=== PATIENT | male | born 1975 | race Caucasian/White ===

== ENCOUNTER 2016-06-01 13:21 | Inpatient (IN) | payer OTHER ==
[2016-06-01 13:45] VITALS: BMI 24.1
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
[2016-06-01] MEDS ORDERED: ACETAMINOPHEN 325 MG TABLET (FP) PO PRN (17:31)
[2016-06-01] MEDS ORDERED: MAG HYDROX/AL HYDROX/SIMETH 30 ML UNIT-DOSE CUP PO PRN (17:31)
[2016-06-01] MEDS ORDERED: chlordiazePOXIDE HCL 25 MG CAPSULE PO ONE (17:31)
[2016-06-01] MEDS ORDERED: MENTHOL/PHENOL 1 EACH UD MM PRN (17:31)
[2016-06-01] MEDS ORDERED: MAGNESIUM HYDROX 2400MG/30ML ORAL SUSPENSION 30 ML CUP PO PRN (17:31)
[2016-06-01] MEDS ORDERED: LOPERAMIDE HCL 2 MG CAPSULE PO PRN (17:31)
[2016-06-01] MEDS ORDERED: MAGNESIUM CITRATE 300 ML BOTTLE PO PRN (17:31)
[2016-06-01] MEDS ORDERED: guaiFENesin/D-METHORPHAN HB 10 ML UNIT-DOSE CUPS PO PRN (17:31)
[2016-06-01] MEDS ORDERED: IBUPROFEN 400 MG TABLET (FP) PO PRN (17:31)
[2016-06-01] MEDS ORDERED: P-EPHED 60MG/TRIPROLIDI 2.5MG TABLET PO PRN (17:31)
[2016-06-01] MEDS: THIAMINE HCL 100 MG TABLET (FP) PO SCH (22:13)
[2016-06-01] MEDS: diphenhydrAMINE HCL 50 MG CAPSULE PO PRN (22:13)
[2016-06-01] MEDS: chlordiazePOXIDE HCL 25 MG CAPSULE PO SCH (22:13)
[2016-06-02] MEDS ORDERED: cloNIDine HCL 0.1 MG TABLET PO ONE (00:36)
[2016-06-02] MEDS: chlordiazePOXIDE HCL 25 MG CAPSULE PO PRN ×3 (00:51→22:45)
[2016-06-02] MEDS: chlordiazePOXIDE HCL 25 MG CAPSULE PO SCH ×4 (05:17→22:14)
[2016-06-02 10:07] LABS: MCH 32.3 pg (25.7-33.7); MCHC 32.7 g/dl (32.0-35.9); MEAN CELL VOLUME 98.7 fl (80-96); MEAN PLT VOLUME 11.8 fl (7.5-11.1); RDW 12.7 % (11.9-15.9)
[2016-06-02] MEDS: PRENATAL VITAMINS W/ FOLIC ACID TABLET (FP) PO SCH (10:11)
--- NOTE | 2016-06-02 10:21 | PN ---
S CIWA - CIWA Score Nausea/Vomitin Muscle Tremors: 3 Anxiety: 3 Agitation: 3 Paroxysmal Sweats: 3 Orientation: 0-Oriented Tacttile Disturbances: 1-Very Mild Itch/Numbness Auditory Disturbances: 0-None Visual Disturbances: 0-None Headache: 0-None Present CIWA-Ar Total Score: 16 BHS Progress Note (SOAP) Subjective: interrupted sleep, sweats, nausea Objective: 06/02/16 10:17 Vital Signs Temperature 99.1 F 06/02/16 09:49 Pulse Rate 116 H 06/02/16 09:49 Respiratory Rate 18 06/02/16 09:49 Blood Pressure 135/92 06/02/16 09:49 O2 Sat by Pulse Oximetry (%) Laboratory Tests 06/02/16 08:00 WBC 3.0 L RBC 4.16 Hgb 13.4 Hct 41.0 MCV 98.7 H MCHC 32.7 RDW 12.7 MPV 11.8 H D pending labs pt alert ox3 , tremors 06/02/16 10:21 Assessment: 06/02/16 10:19 withdrawal sx;s 06/02/16 10:21 Plan: cont detox increase fluids motrin prn librium prn
[2016-06-02 10:43] LABS: ALBUMIN 3.5 g/dl (3.4-5.0); ALK PHOS 103 U/L (45-117); ANION GAP 12 (8-16); BILIRUBIN,TOTAL 0.6 mg/dL (0.2-1.0); CO2 28 mmol/L (21-32); COCKROFT - GAULT 125.21; CREATININE 0.8 mg/dL (0.7-1.3); GLUCOSE,RANDOM 99 mg/dL (74-106); SGOT/AST 101 U/L (15-37); SGPT/ALT 60 U/L (12-78); TOT PROT 7.5 g/dl (6.4-8.2)
--- NOTE | 2016-06-02 11:29 | EKG ---
Test Reason : Blood Pressure : / mmHG Vent. Rate : 096 BPM Atrial Rate : 096 BPM P-R Int : 148 ms QRS Dur : 082 ms QT Int : 346 ms P-R-T Axes : 047 011 019 degrees QTc Int : 437 ms NORMAL SINUS RHYTHM NORMAL ECG NO PREVIOUS ECGS AVAILABLE Confirmed by FRANCHESKA BALDERAS MD ([id number]) on 06/02/2016 11:29:30 AM Referred By: Confirmed By:FRANCHESKA BALDERAS MD
[2016-06-02 13:20] LABS: PLATELET COUNT 95 K/MM3 (134-434)
[2016-06-02] MEDS: hydrOXYzine PAMOATE 50 MG CAPSULE (FP) PO PRN (15:13)
[2016-06-02 18:18] LABS: URINE APPEARANCE CLOUDY; URINE BILIRUBIN NEGATIVE (NEGATIVE); URINE COLOR YELLOW; URINE GLUCOSE (UA) NEGATIVE (NEGATIVE); URINE KETONE NEGATIVE (NEGATIVE); URINE NITRITE NEGATIVE (NEGATIVE); URINE PROTEIN NEGATIVE (NEGATIVE); URINE UROBILINOGEN NEGATIVE E.U./dl (0.2-1.0)
[2016-06-02 18:35] LABS: URINE BLOOD 1+ (NEGATIVE); URINE LEUK ESTERASE 1+ (NEGATIVE)
[2016-06-02 19:23] LABS: URINE RBC 1 /hpf (0-3); URINE WBC 2 /hpf (3-5)
[2016-06-02] MEDS: THIAMINE HCL 100 MG TABLET (FP) PO SCH (21:53)
[2016-06-03] MEDS: chlordiazePOXIDE HCL 25 MG CAPSULE PO SCH ×3 (06:26→18:01)
[2016-06-03] MEDS: PRENATAL VITAMINS W/ FOLIC ACID TABLET (FP) PO SCH (10:17)
--- NOTE | 2016-06-03 10:24 | PN ---
S CIWA - CIWA Score Nausea/Vomitin Muscle Tremors: 3 Anxiety: 3 Agitation: 2 Paroxysmal Sweats: 3 Orientation: 0-Oriented Tacttile Disturbances: 1-Very Mild Itch/Numbness Auditory Disturbances: 0-None Visual Disturbances: 0-None Headache: 0-None Present CIWA-Ar Total Score: 14 S Progress Note (SOAP) Subjective: interrupted sleep, sweats, shakes,scar rt eyebrow Objective: 06/03/16 10:20 Vital Signs Temperature 98.2 F 06/03/16 09:51 Pulse Rate 113 H 06/03/16 09:51 Respiratory Rate 18 06/03/16 09:51 Blood Pressure 131/95 06/03/16 09:51 O2 Sat by Pulse Oximetry (%) Laboratory Tests 06/02/16 06/02/16 06/02/16 08:00 08:00 08:00 WBC 3.0 L RBC 4.16 Hgb 13.4 Hct 41.0 MCV 98.7 H MCHC 32.7 RDW 12.7 Plt Count 95 L D MPV 11.8 H D Platelet Comment No clotting detected Sodium 139 Potassium 3.9 Chloride 99 Carbon Dioxide 28 Anion Gap 12 BUN 7 Creatinine 0.8 Creat Clearance w eGFR > 60 Random Glucose 99 D Calcium 9.0 Total Bilirubin 0.6 D AST 101 H ALT 60 D Alkaline Phosphatase 103 Total Protein 7.5 Albumin 3.5 Urine Color Urine Appearance Urine pH Ur Specific [place] Urine Protein Urine Glucose (UA) Urine Ketones Urine Blood Urine Nitrite Urine Bilirubin Urine Urobilinogen Ur Leukocyte Esterase Urine RBC Urine WBC Ur Epithelial Cells RPR Titer Nonreactive 06/02/16 13:00 WBC RBC Hgb Hct MCV MCHC RDW Plt Count MPV Platelet Comment Sodium Potassium Chloride Carbon Dioxide Anion Gap BUN Creatinine Creat Clearance w eGFR Random Glucose Calcium Total Bilirubin AST ALT Alkaline Phosphatase Total Protein Albumin Urine Color Yellow Urine Appearance Cloudy Urine pH 7.0 D Ur Specific [place] 1.008 Urine Protein Negative Urine Glucose (UA) Negative Urine Ketones Negative Urine Blood 1+ H Urine Nitrite Negative Urine Bilirubin Negative Urine Urobilinogen Negative Ur Leukocyte Esterase 1+ H Urine RBC 1 Urine WBC 2 Ur Epithelial Cells Moderate RPR Titer pt aox3 in nad mild tremor healing scar od eyebrow 06/03/16 10:23 06/03/16 10:24 Assessment: 04/11/17 10:21 withdrawal sx's od eyebrow scar healing 06/03/16 10:23 06/03/16 10:24 Plan: cont detox increase fluids vit e librium prn
[2016-06-03] MEDS: chlordiazePOXIDE HCL 25 MG CAPSULE PO PRN ×2 (14:00→20:11)
[2016-06-03] MEDS: chlordiazePOXIDE 5 MG CAPSULE PO SCH (22:40)
[2016-06-03] MEDS: diphenhydrAMINE HCL 50 MG CAPSULE PO PRN (22:40)
[2016-06-03] MEDS: THIAMINE HCL 100 MG TABLET (FP) PO SCH (22:40)
[2016-06-04] MEDS: chlordiazePOXIDE 5 MG CAPSULE PO SCH ×3 (05:46→17:58)
[2016-06-04] MEDS: PRENATAL VITAMINS W/ FOLIC ACID TABLET (FP) PO SCH (10:21)
--- NOTE | 2016-06-04 13:29 | PN ---
BHS Progress Note (SOAP) Subjective: feeling better, + shakes Objective: 06/04/16 13:28 Vital Signs Temperature 97.3 F L 06/04/16 10:08 Pulse Rate 106 H 06/04/16 10:08 Respiratory Rate 20 06/04/16 10:08 Blood Pressure 129/84 06/04/16 10:08 O2 Sat by Pulse Oximetry (%) Laboratory Tests 06/02/16 06/02/16 06/02/16 08:00 08:00 08:00 WBC 3.0 L RBC 4.16 Hgb 13.4 Hct 41.0 MCV 98.7 H MCHC 32.7 RDW 12.7 Plt Count 95 L D MPV 11.8 H D Platelet Comment No clotting detected Sodium 139 Potassium 3.9 Chloride 99 Carbon Dioxide 28 Anion Gap 12 BUN 7 Creatinine 0.8 Creat Clearance w eGFR > 60 Random Glucose 99 D Calcium 9.0 Total Bilirubin 0.6 D AST 101 H ALT 60 D Alkaline Phosphatase 103 Total Protein 7.5 Albumin 3.5 Urine Color Urine Appearance Urine pH Ur Specific [place] Urine Protein Urine Glucose (UA) Urine Ketones Urine Blood Urine Nitrite Urine Bilirubin Urine Urobilinogen Ur Leukocyte Esterase Urine RBC Urine WBC Ur Epithelial Cells RPR Titer Nonreactive 06/02/16 13:00 WBC RBC Hgb Hct MCV MCHC RDW Plt Count MPV Platelet Comment Sodium Potassium Chloride Carbon Dioxide Anion Gap BUN Creatinine Creat Clearance w eGFR Random Glucose Calcium Total Bilirubin AST ALT Alkaline Phosphatase Total Protein Albumin Urine Color Yellow Urine Appearance Cloudy Urine pH 7.0 D Ur Specific [place] 1.008 Urine Protein Negative Urine Glucose (UA) Negative Urine Ketones Negative Urine Blood 1+ H Urine Nitrite Negative Urine Bilirubin Negative Urine Urobilinogen Negative Ur Leukocyte Esterase 1+ H Urine RBC 1 Urine WBC 2 Ur Epithelial Cells Moderate RPR Titer pt aox3 in nad ambulating+ shakes mild Assessment: 06/04/16 13:28 withdrawal sx's Plan: cont. detox increase fluids d/c in am
[2016-06-04] MEDS: chlordiazePOXIDE HCL 25 MG CAPSULE PO PRN (14:02)
[2016-06-04] MEDS: chlordiazePOXIDE HCL 10 MG CAPSULE PO SCH (22:59)
[2016-06-04] MEDS: THIAMINE HCL 100 MG TABLET (FP) PO SCH (22:59)
[2016-06-04] MEDS: diphenhydrAMINE HCL 50 MG CAPSULE PO PRN (23:51)
[2016-06-05] MEDS: chlordiazePOXIDE HCL 10 MG CAPSULE PO SCH (06:11)
--- NOTE | 2016-06-05 08:33 | DS ---
[facility] Detox Discharge Summary Admission Date: 06/01/16 Discharge Date: 06/05/16 - History Present History: Alcohol Dependence - Physical Exam Results Vital Signs: Vital Signs Temperature 97.5 F L 06/05/16 06:53 Pulse Rate 88 06/05/16 06:53 Respiratory Rate 18 06/05/16 06:53 Blood Pressure 134/76 06/05/16 06:53 O2 Sat by Pulse Oximetry (%) - Treatment Hospital Course: Detox Protocol Followed, Detoxed Safely, Responded well, Discharged Condition Good - Medication Discharge Medications: Ambulatory Orders NK [No Known Home Medication] 02/01/14 - Diagnosis (1) Alcohol dependence with uncomplicated withdrawal Current Visit: Yes Status: Chronic (2) Hypercholesteremia Current Visit: Yes Status: Chronic - AMA Did Patient Leave Against Medical Advice: No
[2016-06-05] MEDS: PRENATAL VITAMINS W/ FOLIC ACID TABLET (FP) PO SCH (09:45)
[2016-06-05] MEDS: hydrOXYzine PAMOATE 50 MG CAPSULE (FP) PO PRN (09:46)
[2016-06-05 10:01] VITALS: BP 123/85; PULSE 103; TEMP 97.2
== END 2016-06-05 10:02 | disposition home or self-care (01) | DRG 775 ==
LOC: YASAS 13:21 → Y6N 17:18
PROVIDERS: ADMIT Internal Medicine; ATTEND Internal Medicine Addiction Medicine
PROC: HZ2ZZZZ Detoxification Services for Substance Abuse Treatment (ICD-10-PCS; principal; 2016-06-05)
DX: F10.230 Alcohol dependence with withdrawal, uncomplicated (principal); G40.509 Epileptic seizures related to external causes, not intractable, without status epilepticus; E78.00 Pure hypercholesterolemia, unspecified
CPT/HCPCS: 36415; 80053; 81003; 81015; 85027; 86593; 93005; 93010

== ENCOUNTER 2018-07-15 21:43 | Emergency (ER) | payer OTHER ==
[2018-07-15 21:49] VITALS: BMI 268.5
--- NOTE | 2018-07-15 22:15 | PDOC ---
History of Present Illness - General Chief Complaint: Alcohol intoxication Stated Complaint: INTOX Time Seen by Provider: 07/15/18 22:15 - History of Present Illness Initial Comments: 42yo M with PMH of ETOH abuse, alcohol withdrawal seizures, and HTN presenting with intoxication. Patient was sent to this ED because there were no beds available at [facility] detox [facility]. He does not have acute complaints, but is motivated to enter detox. Patient admits to drinking 40 eighteen ounce budweiser beers. He has had heavy drinking for the past 20 years or so. He last had an alcohol withdrawal seizure two weeks ago. 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 No suicidal or homicidal ideation. No fevers, chills, chest pain, or shortness of breath. Past History - Past Medical History Allergies/Adverse Reactions: Allergies Allergy/AdvReac Type Severity Reaction Status Date / Time No Known Allergies Allergy Verified 07/15/18 21:46 Home Medications: Ambulatory Orders NK [No Known Home Medication] 02/01/14 Anemia: No Asthma: No Cancer: No Cardiac Disorders: No CVA: No COPD: No CHF: No Dementia: No Diabetes: No GI Disorders: No Disorders: No HTN: Yes Hypercholesterolemia: Yes Kidney Stones: No Liver Disease: No Seizures: No Thyroid Disease: No - Surgical History Abdominal Surgery: No Appendectomy: No Cardiac Surgery: No Cholecystectomy: No Lung Surgery: No Neurologic Surgery: No Orthopedic Surgery: No - Reproductive History Testicular Surgery: No - Suicide/Smoking/Psychosocial Hx Smoking History: Unknown if ever smoked Have you smoked in the past 12 months: No Information on smoking cessation initiated: No Hx Alcohol Use: Yes Drug/Substance Use Hx: No Substance Use Type: Alcohol Hx Substance Use Treatment: No Review of Systems - Review of Systems Comments:: Constitutional: no fever, no chills HEENT: no throat pain, no dysphagia Cardiovascular: no chest pain, no palpitations Respiratory: no cough, no shortness of breath Gastrointestinal: no abdominal pain, no nausea Genitourinary: no dysuria, no frequency Musculoskeletal: no myalgia, no arthralgia Skin: no rash, no itching Neurologic: no headache, no weakness *Physical Exam - Vital Signs Last Vital Signs Temp Pulse Resp BP Pulse Ox 98.6 F 90 18 134/80 98 07/15/18 21:47 07/15/18 21:47 07/15/18 21:47 07/15/18 21:47 07/15/18 21:47 - Physical Exam Comments: General: Awake, alert, and fully oriented, in no acute distress, fruity breath Head: No signs of trauma Eyes: EOMI, sclera anicteric ENT: Moist mucus membranes Neck: Normal ROM, supple Lungs: Lungs clear, Normal breath sounds Cardio: Regular rhythm, S1 and S2 present Abdomen: Soft, nontender. No guarding, no rebound, no masses Extremities: Normal range of motion, Distal pulses present SKIN: Warm, Dry, normal turgor Neurologic: Cranial nerves II through XII grossly intact. Slurred speech ED Treatment Course - LABORATORY CBC & Chemistry Diagram: 07/15/18 22:44 07/15/18 22:44 Medical Decision Making - Medical Decision Making 42yo M with PMH of ETOH abuse, alcohol withdrawal seizures, and HTN presenting with intoxication. Sent over by [facility] because they do not have beds available Banana bag given Basic labs sent CBC WBC 4.5 K/mm3 (4.0-10.0) 07/15/18 22:44 RBC 4.39 M/mm3 (4.00-5.60) 07/15/18 22:44 Hgb 13.5 GM/dL (11.7-16.9) 07/15/18 22:44 Hct 41.2 % (35.4-49) 07/15/18 22:44 MCV 93.9 fl (80-96) 07/15/18 22:44 MCH 30.7 pg (25.7-33.7) 07/15/18 22:44 MCHC 32.7 g/dl (32.0-35.9) 07/15/18 22:44 RDW 13.9 % (11.9-15.9) 07/15/18 22:44 Plt Count 139 K/MM3 (134-434) D 07/15/18 22:44 MPV 10.1 fl (7.5-11.1) D 07/15/18 22:44 Absolute Neuts (auto) 1.1 K/mm3 (1.5-8.0) L 07/15/18 22:44 Neutrophils % 24.9 % (42.8-82.8) L 07/15/18 22:44 Lymphocytes % 59.4 % (8-40) H 07/15/18 22:44 Monocytes % 9.0 % (3.8-10.2) 07/15/18 22:44 Eosinophils % 3.8 % (0-4.5) 07/15/18 22:44 Basophils % 2.9 % (0-2.0) H 07/15/18 22:44 Nucleated RBC % 0 % (0-0) 07/15/18 22:44 Platelet Estimate Decreased 07/15/18 22:44 Platelet Comment No clumping noted 07/15/18 22:44 No leukocytosis or anemia CMP Sodium 143 mmol/L (136-145) 07/15/18 22:44 Potassium 4.1 mmol/L (3.5-5.1) 07/15/18 22:44 Chloride 109 mmol/L (98-107) H 07/15/18 22:44 Carbon Dioxide 25 mmol/L (21-32) 07/15/18 22:44 Anion Gap 10 MMOL/L (8-16) 07/15/18 22:44 BUN 6 mg/dL (7-18) L 07/15/18 22:44 Creatinine 0.7 mg/dL (0.55-1.3) 07/15/18 22:44 Est GFR (CKD-EPI)AfAm 134.91 07/15/18 22:44 Est GFR (CKD-EPI)NonAf 116.40 07/15/18 22:44 Random Glucose 100 mg/dL (74-106) 07/15/18 22:44 Calcium 8.6 mg/dL (8.5-10.1) 07/15/18 22:44 Total Bilirubin 0.3 mg/dL (0.2-1) 07/15/18 22:44 AST 116 U/L (15-37) H 07/15/18 22:44 ALT 45 U/L (13-61) 07/15/18 22:44 Alkaline Phosphatase 103 U/L (45-117) 07/15/18 22:44 Total Protein 8.6 g/dl (6.4-8.2) H 07/15/18 22:44 Albumin 4.0 g/dl (3.4-5.0) 07/15/18 22:44 Elevated AST as expected given patient's heavy alcohol use Ambulating without difficulty No slurred speech Patient clinically sober for discharge May present to [facility] for detox 07/16/18 07:59 *DC/Admit/Observation/Transfer Diagnosis at time of Disposition: Alcohol use with intoxication - Discharge Dispostion Disposition: HOME Condition at time of disposition: Stable - Referrals - Patient Instructions Printed Discharge Instructions: DI for Alcohol Abuse Additional Instructions: Present to [facility] at 8am tomorrow [place] [address] Follow-up with you primary care physician in 5-7 days to discuss this ED visit and to further evaluate your symptoms. Your care is not complete until you do so. Call and make an appointment. Immediate medical attention is required if you have: a seizure or develop tremors or hallucinations and do not have access to alcohol, vomiting, chest pain, shortness of breath, abdominal pain, thoughts of self-harm, or an other new or concerning symptoms. If you think you are having an emergency, call for emergency medical services or present to the emergency department right away. - Post Discharge Activity
--- NOTE | 2018-07-15 22:36 | PDOC ---
Documentation entered by Maeve Brewer SCRIBE, acting as scribe for Sam Manzo MD. Sam Manzo MD: This documentation has been prepared by the sae, Maeve Brewer SCRIBE, under my direction and personally reviewed by me in its entirety. I confirm that the documentation accurately reflects all work, treatment, procedures, and medical decision making performed by me. Attending Attestation - Resident Resident Name: Radha Camargo - ED Attending Attestation I have performed the following: I have examined & evaluated the patient, The case was reviewed & discussed with the resident, I agree w/resident's findings & plan, Exceptions are as noted - HPI HPI: 07/15/18 22:44 The patient is a 42-year-old male with a past medical history significant for HTN and alcohol abuse presents to the emergency department from [facility] for evaluation. The patient reports he was evaluated at [facility] for alcohol detox prior to coming to the ER. The patient reports he had 40 bottles of 18 oz of Budweiser today. 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 Patient denies any other complain, denies HI, SI, trauma, or falls. The patient reports a prior history of alcohol withdrawal seizures. Denies fever , chills, chest pain, or shortness of breath. Allergies: NKDA - Physicial Exam PE: 07/16/18 07:47 Visibly intoxicated, NAD NCAT, PERRL, no icterus No tongue fasciculations RRR LCTAB Abd soft, nt, nd Ext, no swelling, deformities, no asterixis - Medical Decision Making 07/16/18 07:48 Patient is acutely intoxicated. He initially presented to [facility] requesting detox but they had no beds so he was transported to this ED Will evaluate for any acute medical issues and monitor until clinically sober Pt is still expressing desire for detox [facility] states that they now have 3 openings this morning Pt is clinically sober, will dc and escort to [facility]
[2018-07-15] MEDS ORDERED: FOLIC ACID INJECTION - 1 MG, THIAMINE HCL 100 MG, MULTIVIT INJECTION ADULT 10 ML in SOD... IVPB ONE (22:42)
[2018-07-15 22:53] LABS: BASO % 2.9 % (0-2.0); EOS % 3.8 % (0-4.5); HEMATOCRIT 41.2 % (35.4-49); HEMOGLOBIN 13.5 GM/dL (11.7-16.9); LYMPH % 59.4 % (8-40); MCH 30.7 pg (25.7-33.7); MCHC 32.7 g/dl (32.0-35.9); MEAN CELL VOLUME 93.9 fl (80-96); MEAN PLT VOLUME 10.1 fl (7.5-11.1); NEUT % 24.9 % (42.8-82.8); PLATELET COUNT 139 K/MM3 (134-434); RBC 4.39 M/mm3 (4.00-5.60); RDW 13.9 % (11.9-15.9); WHITE BLOOD COUNT 4.5 K/mm3 (4.0-10.0)
[2018-07-15 23:28] LABS: PLATELET ESTIMATE DECREASED
[2018-07-15 23:51] LABS: BILIRUBIN,TOTAL 0.3 mg/dL (0.2-1); CALCIUM 8.6 mg/dL (8.5-10.1); CREATININE 0.7 mg/dL (0.55-1.3); POTASSIUM 4.1 mmol/L (3.5-5.1); TOT PROT 8.6 g/dl (6.4-8.2)
[2018-07-16 03:27] VITALS: TEMP 98.7
[2018-07-16 08:10] VITALS: BP 118/70; PULSE 95
== END 2018-07-16 07:45 | disposition home or self-care (01) ==
LOC: JER 21:43
PROC: 3E033GC Introduction of Other Therapeutic Substance into Peripheral Vein, Percutaneous Approach (ICD-10-PCS; principal; 2018-07-15)
DX: F10.120 Alcohol abuse with intoxication, uncomplicated (principal); I10 Essential (primary) hypertension; G40.509 Epileptic seizures related to external causes, not intractable, without status epilepticus
CPT/HCPCS: 36415; 80053; 85025; 99282-25; J7030

== ENCOUNTER 2018-07-16 17:32 | Emergency (ER) | payer OTHER ==
[2018-07-16 18:01] VITALS: TEMP 98.1; BMI 25.9
[2018-07-16] MEDS ORDERED: SODIUM CHLORIDE 1,000 ML IV STA (19:41)
--- NOTE | 2018-07-16 19:50 | PDOC ---
History of Present Illness - General Chief Complaint: Seizure Stated Complaint: SEIZURE Time Seen by Provider: 07/16/18 18:50 History Source: Patient Exam Limitations: No Limitations - History of Present Illness Initial Comments: 07/16/18 19:42 Patient is a 42 year old male with history of alcohol use disorder, with withdrawal seizures, hypertension, presents from [facility] after witnessed seizure activity. Patient endorses that he was feeling weak, and lightheaded, however does not remember what happened. Per [facility] note, patient was noted to be shaking while upright, and was helped to the floor. Noted that he did not fall. Patient was given Ativan 1mg IV. Patient does not recall any trauma to his head, or any part of his body. He currently denies headache subjective fevers, chills, shortness of breath, chest pain, palpitations, abdominal pain, nausea, vomiting. Past History - Travel Traveled outside of the country in the last 30 days: No - Past Medical History Allergies/Adverse Reactions: Allergies Allergy/AdvReac Type Severity Reaction Status Date / Time No Known Allergies Allergy Verified 07/16/18 10:02 Home Medications: Ambulatory Orders NK [No Known Home Medication] 07/16/18 Anemia: No Asthma: No Cancer: No Cardiac Disorders: No CVA: No COPD: No CHF: No Dementia: No Diabetes: No GI Disorders: No Disorders: No HTN: No Hypercholesterolemia: Yes Kidney Stones: No Liver Disease: No Seizures: Yes Thyroid Disease: No - Surgical History Abdominal Surgery: No Appendectomy: No Cardiac Surgery: No Cholecystectomy: No Lung Surgery: No Neurologic Surgery: No Orthopedic Surgery: No - Reproductive History Testicular Surgery: No - Suicide/Smoking/Psychosocial Hx Smoking History: Never smoked Have you smoked in the past 12 months: No Information on smoking cessation initiated: No Hx Alcohol Use: Yes Drug/Substance Use Hx: No Substance Use Type: Alcohol Hx Substance Use Treatment: Yes Review of Systems - Review of Systems Able to Perform ROS?: Yes (As per HPI) *Physical Exam - Vital Signs Last Vital Signs Temp Pulse Resp BP Pulse Ox 98.1 F 125 H 18 127/67 100 07/16/18 17:57 07/16/18 17:57 07/16/18 17:57 07/16/18 17:57 07/16/18 17:57 - Physical Exam General Appearance: No: Apparent Distress HEENT: positive: EOMI, IWONA. negative: Photophobia, Scleral Icterus (R), Scleral Icterus (L), Pharyngeal Erythema, Tonsillar Exudate Neck: positive: Supple. negative: Lymphadenopathy (R), Lymphadenopathy (L) Respiratory/Chest: positive: Lungs Clear, Normal Breath Sounds. negative: Respiratory Distress, Labored Respiration, Crackles, Rales, Rhonchi, Stridor, Wheezing, Hyperresonant, Dullness Cardiovascular: positive: Regular Rhythm, S1, S2, Tachycardia. negative: Murmur Gastrointestinal/Abdominal: positive: Normal Bowel Sounds, Flat, Soft. 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 Noted that patient did not fall, and was helped onto the flood per [facility] note. Currently [facility] 7-9 Will obtain CBC, BMP EKG, troponin Patient tachycardic. Will hydrate with 1L normal saline IV bolus Ativan 2mg IV 07/16/18 23:20 EKG shows normal sinus rhythm at 93 BPM. No ischemic changes. Troponin 0.02 Hypokalemic to 3.4. Potassium repleted. Will discharge patient back to [facility]. Case discussed with [facility] admitting, and patient has bed available. All patient's questions, concerns answered, addressed. Patient in agreement with plan. *DC/Admit/Observation/Transfer Diagnosis at time of Disposition: Alcohol dependence, Alcohol withdrawal seizure - Discharge Dispostion Disposition: LONG-TERM FACILITY Condition at time of disposition: Stable Decision to Admit order: No - Referrals - Patient Instructions Additional Instructions: You were seen in the Emergency Department for alcohol withdrawal, and seizure. You were treated with medication for withdrawal, and seizure. Your blood work, and EKG were within normal limits, and you are being discharged back [facility]. Follow the medication, follow up, and discharge recommendations of the physicians at [facility]. Follow up with your primary care physician within one to two days after discharge. - Post Discharge Activity
[2018-07-16] MEDS ORDERED: LORazepam 2 MG/ML SDV VIAL ONE (20:08)
[2018-07-16 21:15] LABS: HEMATOCRIT 36.1 % (35.4-49); MCH 31.1 pg (25.7-33.7); MCHC 33.3 g/dl (32.0-35.9); MEAN CELL VOLUME 93.4 fl (80-96); MEAN PLT VOLUME 10.7 fl (7.5-11.1); RBC 3.87 M/mm3 (4.00-5.60); RDW 14.3 % (11.9-15.9); WHITE BLOOD COUNT 8.3 K/mm3 (4.0-10.0)
[2018-07-16 22:30] VITALS: BP 156/99; PULSE 98
[2018-07-16 22:34] LABS: ANION GAP 9 MMOL/L (8-16); BLOOD UREA NITROGEN 7 mg/dL (7-18); CALCIUM 8.6 mg/dL (8.5-10.1); CHLORIDE 105 mmol/L (98-107); CO2 26 mmol/L (21-32); CREATININE 0.7 mg/dL (0.55-1.3); GLUCOSE,RANDOM 105 mg/dL (74-106); POTASSIUM 3.4 mmol/L (3.5-5.1); SODIUM 140 mmol/L (136-145)
[2018-07-16] MEDS ORDERED: POTASSIUM CHLORIDE ORAL LIQUID 20 MEQ/15 ML PO ONE (22:38)
[2018-07-16 22:44] LABS: PLATELET COUNT 113 K/MM3 (134-434)
[2018-07-16] MEDS ORDERED: VALSARTAN 40 MG TABLET (FP) PO ONE (23:04)
[2018-07-16] MEDS ORDERED: ACETAMINOPHEN 1000 MG/100 ML VIAL (NON FORMULARY) IVPB ONE (23:07)
[2018-07-16] MEDS ORDERED: POTASSIUM CHLORIDE ORAL LIQUID 20 MEQ/15 ML ONE (23:12)
[2018-07-16] MEDS ORDERED: VALSARTAN 80 MG TABLET (UD) ONE (23:14)
[2018-07-16] MEDS ORDERED: ACETAMINOPHEN INJECTION 100 ML IVPB ONE (23:14)
--- NOTE | 2018-07-16 23:52 | PDOC ---
Documentation entered by Geovanny Noguera SCRIBE, acting as scribe for Blanquita Lyles MD. Blanquita Lyles MD: This documentation has been prepared by the jamese, Geovanny Noguera SCRIBE, under my direction and personally reviewed by me in its entirety. I confirm that the documentation accurately reflects all work, treatment, procedures, and medical decision making performed by me. Attending Attestation - Resident Resident Name: Nicolas Dave - ED Attending Attestation I have performed the following: I have examined & evaluated the patient, The case was reviewed & discussed with the resident, I agree w/resident's findings & plan - HPI HPI: 07/16/18 20:05 The patient is a 42 year old male with a significant past medical history of hypertension, ETOH abuse with alcohol with withdrawal seizures and hypercholesterolemia who presents to the emergency department via EMS from [facility] with a witnessed seizure today. The patient reports that he went to [facility] yesterday for alcohol detox s/p consuming 12 beers and about 2 pints of whiskey. The patient states that he was feeling lightheaded and weak prior to his seizure episode. As per nursing at [facility], the patient was noted to be convulsing and shaking by which they helped him down to the ground. It is noted that the patient subsequently received 1mg of ativan and was brought to the ED. The patient denies any other symptoms or complaints. - Physicial Exam PE: 07/16/18 23:18 GENERAL: Awake, alert, and fully oriented, in no acute distress HEAD: No signs of trauma EYES: PERRLA, EOMI, sclera anicteric, conjunctiva clear ENT: Auricles normal inspection, hearing grossly normal, nares patent, oropharynx clear without exudates. Moist mucosa NECK: Normal ROM, supple, no lymphadenopathy, JVD, or masses LUNGS: Breath sounds equal, clear to auscultation bilaterally. No wheezes, and no crackles HEART:(+)heart rate is high, not tachy. Regular rhythm, normal S1 and S2, no murmurs, rubs or gallops ABDOMEN: Soft, nontender, normoactive bowel sounds. No guarding, no rebound. No masses EXTREMITIES: Normal range of motion, no edema. No clubbing or cyanosis. No cords, erythema, or tenderness NEUROLOGICAL: Cranial nerves II through XII grossly intact. Normal speech, normal gait SKIN: (+)warm to touch. Dry, normal turgor, no rashes or lesions noted. - Medical Decision Making 07/17/18 03:05 Pt has normal exam and his BP was treated and he was hydrated and potassium was repleted. He was treated with ativan for alcohol withdrawal and he is feeling better. He will be sent back to [facility]
--- NOTE | 2018-07-17 15:29 | EKG ---
Test Reason : Blood Pressure : / mmHG Vent. Rate : 093 BPM Atrial Rate : 093 BPM P-R Int : 150 ms QRS Dur : 086 ms QT Int : 364 ms P-R-T Axes : 035 029 014 degrees QTc Int : 452 ms NORMAL SINUS RHYTHM NORMAL ECG WHEN COMPARED WITH ECG OF 01-JUN-2016 19:01, NO SIGNIFICANT CHANGE WAS FOUND Confirmed by MD Friedman Daniel ([id number]) on 07/17/2018 3:29:33 PM Referred By: Confirmed By:Aamir Friedman MD
== END 2018-07-17 03:20 | disposition other institution (70) ==
LOC: JER 17:32
PROC: 3E0337Z Introduction of Electrolytic and Water Balance Substance into Peripheral Vein, Percutaneous Approach (ICD-10-PCS; principal; 2018-07-16)
PROC: 3E033NZ Introduction of Analgesics, Hypnotics, Sedatives into Peripheral Vein, Percutaneous Approach (ICD-10-PCS; 2018-07-16)
PROC: 3E033NZ Introduction of Analgesics, Hypnotics, Sedatives into Peripheral Vein, Percutaneous Approach (ICD-10-PCS; 2018-07-16)
DX: G40.509 Epileptic seizures related to external causes, not intractable, without status epilepticus (principal); E87.6 Hypokalemia; I10 Essential (primary) hypertension
CPT/HCPCS: 36415; 80048; 84484; 85027; 86704; 86706; 86708; 86803; 87340; 93005; 93010; 99283-25; J0131; J7030

== ENCOUNTER 2018-07-26 22:46 | Inpatient (IN) | payer OTHER | END 2018-07-29 10:12 | disposition left against medical advice (07) | LOC: YASAS 22:46 → Y6N 23:52 ==

== ENCOUNTER 2018-10-04 12:52 | Inpatient (IN) | payer OTHER ==
[2018-10-04 15:18] VITALS: BMI 25.7
--- NOTE | 2018-10-04 16:47 | HP ---
CIWA Score Nausea/Vomitin Muscle Tremors: 2 Anxiety: 2 Agitation: 1-Slight > Activity Paroxysmal Sweats: 2 Orientation: 0-Oriented Tacttile Disturbances: 0-None Auditory Disturbances: 0-None Visual Disturbances: 0-None Headache: 3-Moderate CIWA-Ar Total Score: 13 - Admission Criteria [facility]ASAS Guidelines: Admission for Medically Managed Detox: Requires at least one of the followin. CIWA greater than 12 2. Seizures within the past 24 hours 3. Delirium tremens within the past 24 hours 4. Hallucinations within the past 24 hours 5. Acute intervention needed for co occurring medical disorder 6. Acute intervention needed for co occurring psychiatric disorder 7. Severe withdrawal that cannot be handled at a lower level of care (continued vomiting, continued diarrhea, abnormal vital signs) requiring intravenous medication and/or fluids 8. Admission ROS [facility] Chief Complaint: detox from ETOH Allergies/Adverse Reactions: Allergies Allergy/AdvReac Type Severity Reaction Status Date / Time No Known Allergies Allergy Verified 10/04/18 15:12 History of Present Illness: Mr. Tiffani Jones is a 42yo male with hx of alcohol use disorder, HTN, and HLD who presents for alcohol detox. He was unable to quantify amount of alcohol used recently, but his last visit in July showed more than 12 24oz beers daily. He left AMA last admission after 3 days. He reports hx of seizures (pt sent to ED in June) and blackouts. He reports nausea, abdominal pain, headache, and tremors. 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 He reports intermittent use of HTN meds and does not take meds for HLD. Pt also reports dry feet bilaterally x 5 years. He denies itching, loss of sensation, or pain. PMH: alcohol use disorder, HTN, HLD Surgical hx: skull fx repair Family hx: father-HTN meds: amlodipine NKDA - Ebola screening Have you traveled outside of the country in the last 21 days: No Have you had contact with anyone from an Ebola affected area: No - Review of Systems Constitutional: Chills, Diaphoresis EENT: reports: Tearing Respiratory: denies: Shortness of Breath, Wheezing Cardiac: denies: Chest Pain GI: reports: Nausea. denies: Vomiting : reports: No Symptoms Reported Musculoskeletal: denies: Back Pain Integumentary: reports: Dryness. denies: Erythema, Pruritus Neuro: reports: Headache Endocrine: reports: No Symptoms Reported Hematology: reports: No Symptoms Reported Psychiatric: reports: Judgement Intact, Mood/Affect Appropiate, Orientated x3 Patient History - Patient Medical History Hx Anemia: No Hx Asthma: No Hx Chronic Obstructive Pulmonary Disease (COPD): No Hx Cancer: No Hx Cardiac Disorders: No Hx Congestive Heart Failure: No Hx Hypertension: Yes Hx Hypercholesterolemia: Yes Hx Pacemaker: No HX Cerebrovascular Accident: No Hx Seizures: No Hx Dementia: No Hx Diabetes: No Hx Gastrointestinal Disorders: No Hx Liver Disease: No Hx Genitourinary Disorders: No Hx Sexually Transmitted Disorders: No Hx Renal Disease (ESRD): No Hx Thyroid Disease: No Hx Human Immunodeficiency Virus (HIV): No (last negative 06/11 ) Hx Hepatitis C: No Hx Depression: No Hx Suicide Attempt: No Hx Bipolar Disorder: No Hx Schizophrenia: No - Patient Surgical History Past Surgical History: No Hx Neurologic Surgery: No Hx Cataract Extraction: No Hx Cardiac Surgery: No Hx Lung Surgery: No Hx Breast Surgery: No Hx Breast Biopsy: No Hx Abdominal Surgery: No Hx Appendectomy: No Hx Cholecystectomy: No Hx Genitourinary Surgery: No Hx Section: No Hx Orthopedic Surgery: No Anesthesia Reaction: No - PPD History Date: 06/03/16 - Smoking Cessation Smoking history: Never smoked Have you smoked in the past 12 months: No Hx Chewing Tobacco Use: No - Substances abused Alcohol Substance route: Oral Frequency: Daily Amount used: 14 24/oz cans of beer Age of first use: 32 Date of last use: 10/04/18 Family Disease History - Family Disease History Family Disease History: Heart Disease: Father (alcohol), Other: Father Admission Physical Exam S - Vital Signs Vital Signs: Vital Signs - 24 hr 10/04/18 10/04/18 15:11 16:31 Temperature 97.2 F L 97.2 F L Pulse Rate 85 85 Respiratory 16 16 Rate Blood Pressure 120/77 120/77 - Physical General Appearance: Yes: No Apparent Distress, Disheveled HEENTM: Yes: Hearing grossly Normal, Normocephalic, IWONA Respiratory: Yes: Lungs Clear, No Respiratory Distress Neck: Yes: Within Normal Limits Cardiology: Yes: Regular Rhythm, Regular Rate. 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316 Urine Drug Screen - Test Device Lot number: [id number] Expiration date: 06/22/20 - Control Is test valid?: Yes - Results Drug screen NEGATIVE: Yes Inpatient Rehab Admission - Rehab Decision to Admit Inpatient rehab admission?: No
[2018-10-04] MEDS ORDERED: IBUPROFEN 400 MG TABLET (FP) PO PRN (17:11)
[2018-10-04] MEDS ORDERED: MAGNESIUM HYDROX 2400MG/30ML ORAL SUSPENSION 30 ML CUP PO PRN (17:11)
[2018-10-04] MEDS ORDERED: METHOCARBAMOL 500 MG TABLET PO PRN (17:11)
[2018-10-04] MEDS ORDERED: chlordiazePOXIDE HCL 25 MG CAPSULE PO PRN (17:11)
[2018-10-04] MEDS ORDERED: MAG HYDROX/AL HYDROX/SIMETH 30 ML UNIT-DOSE CUP PO PRN (17:11)
[2018-10-04] MEDS ORDERED: BISMUTH SUBSALICYLATE 524 MG/30 ML UD PO PRN (17:11)
[2018-10-04] MEDS ORDERED: hydrOXYzine PAMOATE 25 MG CAPSULE (FP) PO PRN (17:11)
[2018-10-04] MEDS ORDERED: MENTHOL/PHENOL 1 EACH UD MM PRN (17:11)
[2018-10-04] MEDS ORDERED: ACETAMINOPHEN 325 MG TABLET (FP) PO PRN ×2 (17:11)
[2018-10-04] MEDS ORDERED: MAGNESIUM CITRATE 300 ML BOTTLE PO PRN (17:11)
[2018-10-04] MEDS ORDERED: cloNIDine HCL 0.1 MG TABLET PO PRN (17:17)
[2018-10-04] MEDS: PETROLATUM, WHITE 30 GM TUBE TP SCH (18:45)
--- NOTE | 2018-10-04 18:53 | PN ---
Teaching Attending Note Name of Resident: Rut Tuttle ATTENDING PHYSICIAN STATEMENT I saw and evaluated the patient. I reviewed the resident's note and discussed the case with the resident. I agree with the resident's findings and plan as documented. SUBJECTIVE: 42 yo with long h/o of AUD. Here for detox. Mal-odorus PE- bilateral feet- dry, scaling, nails WNL VS WNL ASSESSMENT AND PLAN: alcohol detox protocol dry skin- lotion, vaseline
[2018-10-04] MEDS ORDERED: chlordiazePOXIDE HCL 25 MG CAPSULE PO ONE (19:00)
[2018-10-04] MEDS: THIAMINE HCL 100 MG TABLET (FP) PO SCH (22:27)
[2018-10-04] MEDS: chlordiazePOXIDE HCL 25 MG CAPSULE PO SCH (22:27)
[2018-10-04] MEDS: amLODIPine BESYLATE 5 MG TABLET (FP) PO SCH (22:27)
[2018-10-04] MEDS: MELATONIN 5 MG TABLETS PO PRN (22:28)
[2018-10-05] MEDS: chlordiazePOXIDE HCL 25 MG CAPSULE PO SCH ×4 (05:13→22:18)
[2018-10-05 09:47] LABS: HEMATOCRIT 42.8 % (35.4-49); HEMOGLOBIN 14.1 GM/dL (11.7-16.9); MCH 30.1 pg (25.7-33.7); MCHC 32.9 g/dl (32.0-35.9); MEAN CELL VOLUME 91.4 fl (80-96); MEAN PLT VOLUME 10.3 fl (7.5-11.1); PLATELET COUNT 262 K/MM3 (134-434); RBC 4.69 M/mm3 (4.00-5.60); RDW 17.2 % (11.9-15.9); WHITE BLOOD COUNT 3.8 K/mm3 (4.0-10.0)
[2018-10-05] MEDS ORDERED: PRENATAL VITAMINS W/ FOLIC ACID TABLET (FP) PO SCH (10:00)
[2018-10-05 10:01] LABS: ALBUMIN 3.7 g/dl (3.4-5.0); BILIRUBIN,TOTAL 0.7 mg/dL (0.2-1); BLOOD UREA NITROGEN 4.8 mg/dL (7-18); CALCIUM 9.4 mg/dL (8.5-10.1); CREATININE 0.8 mg/dL (0.55-1.3); POTASSIUM 4.2 mmol/L (3.5-5.1)
[2018-10-05] MEDS: amLODIPine BESYLATE 5 MG TABLET (FP) PO SCH ×2 (10:05→22:18)
[2018-10-05] MEDS: PETROLATUM, WHITE 30 GM TUBE TP SCH (10:08)
--- NOTE | 2018-10-05 12:12 | PN ---
[facility] CIWA - CIWA Score Nausea/Vomitin-Mild Nausea/No Vomiting Muscle Tremors: 3 Anxiety: 2 Agitation: 2 Paroxysmal Sweats: 2 Orientation: 0-Oriented Tacttile Disturbances: 1-Very Mild Itch/Numbness Auditory Disturbances: 0-None Visual Disturbances: 0-None Headache: 0-None Present CIWA-Ar Total Score: 11 S Progress Note (SOAP) Subjective: 42 years old male admitted on 10/04/18 for acute alcohol withdrawal sx management doing well with librium detox regimen alert oriented x 3 speech clearly prefers "some kind of shot" to stop drinking alcohol discuss behavior change and stress coping along with "shot" as recovery process Objective: 10/05/18 12:11 Vital Signs Temperature 97.6 F 10/05/18 09:21 Pulse Rate 106 H 10/05/18 09:21 Respiratory Rate 18 10/05/18 09:21 Blood Pressure 131/80 10/05/18 09:21 O2 Sat by Pulse Oximetry (%) Laboratory Last Values WBC 3.8 K/mm3 (4.0-10.0) L 10/05/18 08:00 RBC 4.69 M/mm3 (4.00-5.60) 10/05/18 08:00 Hgb 14.1 GM/dL (11.7-16.9) 10/05/18 08:00 Hct 42.8 % (35.4-49) 10/05/18 08:00 MCV 91.4 fl (80-96) 10/05/18 08:00 MCH 30.1 pg (25.7-33.7) 10/05/18 08:00 MCHC 32.9 g/dl (32.0-35.9) 10/05/18 08:00 RDW 17.2 % (11.9-15.9) H 10/05/18 08:00 Plt Count 262 K/MM3 (134-434) 10/05/18 08:00 MPV 10.3 fl (7.5-11.1) 10/05/18 08:00 Sodium 138 mmol/L (136-145) 10/05/18 08:00 Potassium 4.2 mmol/L (3.5-5.1) 10/05/18 08:00 Chloride 102 mmol/L (98-107) 10/05/18 08:00 Carbon Dioxide 29 mmol/L (21-32) 10/05/18 08:00 Anion Gap 7 MMOL/L (8-16) L 10/05/18 08:00 BUN 4.8 mg/dL (7-18) L 10/05/18 08:00 Creatinine 0.8 mg/dL (0.55-1.3) 10/05/18 08:00 Est GFR (CKD-EPI)AfAm 127.70 10/05/18 08:00 Est GFR (CKD-EPI)NonAf 110.18 10/05/18 08:00 Random Glucose 83 mg/dL (74-106) 10/05/18 08:00 Hemoglobin A1c % 6.5 % (4.2-6.3) H 10/05/18 08:00 Calcium 9.4 mg/dL (8.5-10.1) 10/05/18 08:00 Total Bilirubin 0.7 mg/dL (0.2-1) 10/05/18 08:00 AST 123 U/L (15-37) H 10/05/18 08:00 ALT 81 U/L (13-61) H 10/05/18 08:00 Alkaline Phosphatase 94 U/L (45-117) 10/05/18 08:00 Total Protein 8.0 g/dl (6.4-8.2) 10/05/18 08:00 Albumin 3.7 g/dl (3.4-5.0) 10/05/18 08:00 lab noted ast elevation repeat ast Assessment: 10/05/18 12:13 alcohol withdrawal sx Plan: continue librium detox regimen provide alternative of ativan vs librium related to ast elevation patient reports that his is doing well with libirum detox prefers to repeat ast and continue librium
[2018-10-05] MEDS: MELATONIN 5 MG TABLETS PO PRN (22:18)
[2018-10-05] MEDS: THIAMINE HCL 100 MG TABLET (FP) PO SCH (22:18)
[2018-10-06] MEDS ORDERED: chlordiazePOXIDE HCL 25 MG CAPSULE PO SCH (05:00)
[2018-10-06 06:06] VITALS: BP 122/90; PULSE 80; TEMP 97.9
--- NOTE | 2018-10-06 10:06 | DS ---
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 discuss risks of alcohol withdrawal that the patient had history of alcohol seizure patient refuses to discuss further regarding alcohol withdrawal seizure episode at this time Pertinent Past History: hypertension hyper lipidemia encourage the patient follow up with [facility] for bp monitoring and alcohol misuse - Physical Exam Results Vital Signs: Vital Signs Temperature 97.9 F 10/06/18 06:06 Pulse Rate 80 10/06/18 06:06 Respiratory Rate 18 10/06/18 06:06 Blood Pressure 122/90 10/06/18 06:06 O2 Sat by Pulse Oximetry (%) Pertinent Admission Physical Exam Findings: alcohol withdrawal sx Laboratory Last Values WBC 3.8 K/mm3 (4.0-10.0) L 10/05/18 08:00 RBC 4.69 M/mm3 (4.00-5.60) 10/05/18 08:00 Hgb 14.1 GM/dL (11.7-16.9) 10/05/18 08:00 Hct 42.8 % (35.4-49) 10/05/18 08:00 MCV 91.4 fl (80-96) 10/05/18 08:00 MCH 30.1 pg (25.7-33.7) 10/05/18 08:00 MCHC 32.9 g/dl (32.0-35.9) 10/05/18 08:00 RDW 17.2 % (11.9-15.9) H 10/05/18 08:00 Plt Count 262 K/MM3 (134-434) 10/05/18 08:00 MPV 10.3 fl (7.5-11.1) 10/05/18 08:00 Sodium 138 mmol/L (136-145) 10/05/18 08:00 Potassium 4.2 mmol/L (3.5-5.1) 10/05/18 08:00 Chloride 102 mmol/L (98-107) 10/05/18 08:00 Carbon Dioxide 29 mmol/L (21-32) 10/05/18 08:00 Anion Gap 7 MMOL/L (8-16) L 10/05/18 08:00 BUN 4.8 mg/dL (7-18) L 10/05/18 08:00 Creatinine 0.8 mg/dL (0.55-1.3) 10/05/18 08:00 Est GFR (CKD-EPI)AfAm 127.70 10/05/18 08:00 Est GFR (CKD-EPI)NonAf 110.18 10/05/18 08:00 Random Glucose 83 mg/dL (74-106) 10/05/18 08:00 Hemoglobin A1c % 6.5 % (4.2-6.3) H 10/05/18 08:00 Calcium 9.4 mg/dL (8.5-10.1) 10/05/18 08:00 Total Bilirubin 0.7 mg/dL (0.2-1) 10/05/18 08:00 AST 123 U/L (15-37) H 10/05/18 08:00 ALT 81 U/L (13-61) H 10/05/18 08:00 Alkaline Phosphatase 94 U/L (45-117) 10/05/18 08:00 Total Protein 8.0 g/dl (6.4-8.2) 10/05/18 08:00 Albumin 3.7 g/dl (3.4-5.0) 10/05/18 08:00 RPR Titer Nonreactive (NONREACTIVE) 10/05/18 08:00 lab noted emphasize alcohol related ast elevation strong recommend the patient follow up with [facility] for level of liver enzyme - Treatment Hospital Course: Detox Protocol Followed, Responded well Patient has Accepted a Rehab Referral to: [facility] - Medication Discharge Medications: Ambulatory Orders Amlodipine Besylate [Norvasc -] 5 mg PO BID #60 tablet 07/19/18 - Diagnosis (1) HTN (hypertension) Current Visit: Yes Status: Chronic Qualifiers: Hypertension type: essential hypertension Qualified Code(s): I10 - Essential (primary) hypertension (2) Alcohol dependence with uncomplicated withdrawal Current Visit: Yes Status: Acute - AMA Did Patient Leave Against Medical Advice: Yes CIWA Score - CIWA Score Nausea/Vomitin-No Nausea/No Vomiting Muscle Tremors: 3 Anxiety: 3 Agitation: 2 Paroxysmal Sweats: 2 Orientation: 0-Oriented Tacttile Disturbances: 1-Very Mild Itch/Numbness Auditory Disturbances: 0-None Visual Disturbances: 0-None Headache: 0-None Present CIWA-Ar Total Score: 11
[2018-10-07] MEDS ORDERED: chlordiazePOXIDE HCL 10 MG CAPSULE PO PRN
[2018-10-07] MEDS ORDERED: chlordiazePOXIDE HCL 10 MG CAPSULE PO SCH (05:00)
[2018-10-08] MEDS ORDERED: chlordiazePOXIDE HCL 10 MG CAPSULE PO SCH (05:00)
[2018-10-09] MEDS ORDERED: chlordiazePOXIDE HCL 10 MG CAPSULE PO ONE (05:00)
== END 2018-10-06 09:30 | disposition left against medical advice (07) | DRG 770 ==
LOC: YASAS 12:52 → Y3N 17:40
PROVIDERS: ADMIT Surgery; ATTEND Surgery
PROC: HZ2ZZZZ Detoxification Services for Substance Abuse Treatment (ICD-10-PCS; principal; 2018-10-04)
DX: F10.230 Alcohol dependence with withdrawal, uncomplicated (principal); I10 Essential (primary) hypertension; E78.00 Pure hypercholesterolemia, unspecified; L98.8 Other specified disorders of the skin and subcutaneous tissue
CPT/HCPCS: 36415; 80053; 83036; 85027; 86593